=== PATIENT | female | born 1975 | race Caucasian/White ===

== ENCOUNTER 2016-12-09 20:58 | Observation (INO) | payer MEDICARE, OTHER ==
[2016-12-05 10:21] LABS: BASOPHILS 0.2 %; BASOPHILS ABSOLUTE 0.03 10/3/uL (0.0-0.16); EOSINOPHILS 0.6 %; EOSINOPHILS ABSOLUTE 0.09 10/3/uL (0.0-0.53); HEMATOCRIT 37.5 % (36.0-48.0); HEMOGLOBIN 12.4 g/dL (12.0-16.0); IMMATURE GRANULOCYTES 0.3 %; IMMATURE GRANULOCYTES ABSOLUTE 0.05 10/3/uL (0.0-0.11); LYMPHOCYTES 7.4 %; LYMPHOCYTES ABSOLUTE 1.15 10/3/uL (0.67-4.30); MEAN CORPUS HGB CONC 33.1 g/dL (32.0-36.0); MEAN CORPUSCULAR HEMOGLOB 29.6 pg (26.0-34.0); MEAN CORPUSCULAR VOLUME 89.5 fL (80-100); MEAN PLATELET VOLUME 9.7 fL (9.2-13.0); MONOCYTES 6.4 %; MONOCYTES ABSOLUTE 0.99 10/3/uL (0.21-1.20); NEUTROPHILS 85.1 %; PLATELET COUNT 261 10/3/uL (150-400); RBC DISTRIBUTION WIDTH 13.6 % (12.0-16.0); RED CELL COUNT 4.19 10/6/uL (4.0-5.6); WHITE BLOOD CELLS 15.5 10/3/uL (4.5-10.5)
[2016-12-05 10:22] LABS: MANUAL DIFF NO %
[2016-12-05 10:44] LABS: BUN (BLOOD UREA NITROGEN) 6 MG/DL (6-23); CA 125 II 307.8 U/ML (< 35.0); CALCIUM, SERUM 8.9 MG/DL (8.5-10.4); CHLORIDE, SERUM 103 MMOL/L (96-112); CO2 (CARBON DIOXIDE) 28 MMOL/L (24-34); CREATININE 0.84 MG/DL (0.55-1.02); GFR AFRICAN AMERICAN 99 ML/MIN (>=60); GFR NON AFRICAN AMERICAN 86 ML/MIN (>=60); GLUCOSE, SERUM 114 MG/DL (60-99); SODIUM, SERUM 139 MMOL/L (135-148)
[2016-12-05 10:45] LABS: CEA 0.7 NG/ML
--- NOTE | ~2016-12-09 | OP ---
Record Of Operation [facility] [address] [place]. [address] NAME: ONEIL SARAVIA : 73 STATUS : DIS Pina PAT#: [id number] AGE: 41 ADM/REG DATE : 12/09/16 MR#: [id number] REPORT SERV DATE: 12/14/16 DICTATED BY: ABDIAS HOWARD DATE: 12/13/16 REPORT STATUS : Draft TRANSCRIBED BY: AVELINO DATE: 12/13/16 DATE OF PROCEDURE: PREOPERATIVE DIAGNOSIS: Bilateral ovarian masses. POSTOPERATIVE DIAGNOSIS: A torsed necrotic right ovary with questionable left ovarian malignancy versus borderline ovarian tumor. PROCEDURES: 1. Laparoscopic hysterectomy with bilateral salpingo-oophorectomy for specimen greater than 250 g. CPT code 10006. 2. Lysis of adhesions. CPT code 99166. 3. Pelvic lymph node dissections. CPT code 30224. Omental biopsy. SURGEON: Abdias Howard M.D. ESTIMATED BLOOD LOSS: 100 mL. FLUIDS IN: 2 L of crystalloid. URINE OUTPUT: 800 mL. COMPLICATIONS: None. FINDINGS AND INDICATIONS: This is a 41-year-old female, who presented with bilateral ovarian masses and a CA-125 of greater than 300. She was taken to the operating room for laparoscopic hysterectomy, BSO, and possible ovarian cancer staging. She is noted to have a very large right ovary that was torsed and necrotic. She was also noted to have an enlarged left ovary. Both ovaries were drained with minimal spill and eventually taken through the vagina. The left ovary was opened and appeared to be consistent with the possibility of a borderline tumor, was sent for frozen section, which indicated the possibility of borderline tumor versus an invasive carcinoma. A staging procedure was performed secondary to the possibility of an invasive carcinoma. There was no gross evidence of tumor outside of the uterus. Omental biopsy and pelvic lymph node dissection were performed. At the completion of this procedure, the patient will be considered optimally cytoreduced with no gross residual disease. Postprocedure, a cystoscopy was performed with excellent bilateral ureteral jets and no evidence of bladder defect. Prior to induction of anesthesia, the patient was treated with Lovenox for DVT prophylaxis. PROCEDURE IN DETAIL: The patient was taken to the operating room. She was placed in supine position for administration of general anesthesia. She was then placed in dorsal lithotomy position and prepped and draped in usual sterile fashion. A LUIS A uterine manipulator was placed and a SAROJ ring was sutured to the patient's cervix. Our attention was then turned toward the anterior abdominal wall, where an incision was made approximately 27 cm above the pubic symphysis and taken down to the underlying layer of fascia. The fascia was incised, rectus muscles tented up and entered sharply. The peritoneal incision was extended so a Record Of Operation [facility] [address] [facility] [place]. [address] NAME: ONEIL SARAVIA : 73 STATUS : DIS Pina PAT#: [id number] AGE: 41 ADM/REG DATE : 12/09/16 MR#: [id number] REPORT SERV DATE: 12/14/16 DICTATED BY: ABDIAS HOWARD DATE: 12/13/16 REPORT STATUS : Draft TRANSCRIBED BY: AVELINO DATE: 12/13/16 laparoscopic trocar could be placed under direct visualization. Two additional 8-mm trocars were placed, one additional 12-mm trocar was placed all under direct visualization. The patient was then docked to the laparoscopic robotic instrument with remainder of the procedure performed via the da Faith. The above finding was noted. Pelvic washings were taken. Again, both ovaries were noted to be significantly enlarged. The retroperitoneal spaces were opened via round ligaments, which were grasped with bipolar cautery, cauterized, and transected bilaterally. The uterine arteries were identified at their origin and hemoclips were placed to ensure long-term hemostasis. The gonadal vessels were isolated bilaterally. Hemoclips were placed to ensure long-term hemostasis. They were then coagulated and transected bilaterally. The uterine arteries were then skeletonized at the level of the cervix, grasped with bipolar cautery, cauterized, and transected bilaterally. There were multiple adhesions around the ovaries, which were taken down with sharp dissection specifically around the necrotic ovary. The omentum was adherent and the ovary was adherent to the pelvic sidewall. This lysis of adhesions required greater than 50% of the entire operative time to remove. Once the adhesions were adequately displaced, both ovaries were placed into the pelvis. It did require drainage to be removed. There was minimal spill at the time of drainage. There was no gross tumor that spilled. Anteriorly, a bladder flap was created and taken down to a level well below the cervix. The uterosacral cardinal complexes were then taken down with unipolar cautery and a circumferential incision was made around the cervix and vagina, and the uterus, tubes, ovaries, and cervix were delivered through the vagina with the above findings noted. The vaginal cuff was then irrigated with copious amounts of warm water. The vaginal cuff was closed with a running stitch of #1 PDS V-Loc. A pelvic lymph node dissection was then performed within the boundaries of the circumflex iliac vein anteriorly, posteriorly with the obturator nerve, laterally with general femoral nerve, and medially with superior vesical artery. All structures were identified and spared bilaterally. All lymphatic tissue within these boundaries was removed and sent to pathology. The dissection was carried out superiorly to the level of the aorta. An omental biopsy was also performed. Again, there was no gross evidence of tumor on the omentum. Both hemidiaphragms were inspected laparoscopically with no gross evidence of tumor in the upper abdomen. At the completion of the procedure. The pelvis was irrigated with copious amounts of warm water. A DASIA drain was placed through one of the laparoscopic trocar sites. The remainder of the trocars were removed. The gas expelled from the abdomen. The initial incision was closed with 0 Vicryl at the fascia. The 12-mm port was also closed with 0 Vicryl at the fascia. The remainder of the skin sites were closed with 4-0 Vicryl at the skin and Dermabond was placed. Postprocedure, a cystoscopy was performed with excellent bilateral ureteral jets. No evidence of bladder defect. At the completion of the procedure, the anesthesia was reversed. The patient was extubated and brought to the recovery room in stable condition. ASCENCION/MODL Abdias Howard M.D. / [id number] Record Of Operation [address] [place]. [address] NAME: ONEIL SARAVIA VAISHALILb : 73 STATUS : DIS Pina PAT#: [id number] AGE: 41 ADM/REG DATE : 12/09/16 MR#: [id number] REPORT SERV DATE: 12/14/16 DICTATED BY: ABDIAS HOWARD DATE: 12/13/16 REPORT STATUS : Draft TRANSCRIBED BY: AVELINO DATE: 12/13/16 CC: Everett Perkins Jr. D.OManjit
[~2016-12-09 20:58] MED LIST: BL FLAX SEED1000 MG PO; CYMBALTA60 PO; DOLOPHINE10 MG PO; ENDOCET1 TA4 PO; FORTAMET500 MG PO; NORCO1 TAB PO; OXYCON20 PO; PR25 PO; PYR100B PO; [UNRECOGNIZED DRUG - OTHER] PO; [UNRECOGNIZED DRUG - OTHER] PO
[2016-12-10 05:18] LABS: BASOPHILS 0.1 %; BASOPHILS ABSOLUTE 0.01 10/3/uL (0.0-0.16); EOSINOPHILS 0 %; IMMATURE GRANULOCYTES 0.2 %; IMMATURE GRANULOCYTES ABSOLUTE 0.02 10/3/uL (0.0-0.11); LYMPHOCYTES 8.1 %; LYMPHOCYTES ABSOLUTE 0.75 10/3/uL (0.67-4.30); MEAN CORPUSCULAR HEMOGLOB 29.5 pg (26.0-34.0); MEAN CORPUSCULAR VOLUME 92.1 fL (80-100); MEAN PLATELET VOLUME 9.1 fL (9.2-13.0); MONOCYTES 5.7 %; MONOCYTES ABSOLUTE 0.53 10/3/uL (0.21-1.20); NEUTROPHILS 85.9 %; PLATELET COUNT 264 10/3/uL (150-400); RBC DISTRIBUTION WIDTH 13.6 % (12.0-16.0); WHITE BLOOD CELLS 9.3 10/3/uL (4.5-10.5)
[2016-12-10 05:21] LABS: HEMATOCRIT 27.8 % (36.0-48.0); HEMOGLOBIN 8.9 g/dL (12.0-16.0); MANUAL DIFF NO %; RED CELL COUNT 3.02 10/6/uL (4.0-5.6)
[2016-12-10 05:31] LABS: BUN (BLOOD UREA NITROGEN) 7 MG/DL (6-23); CALCIUM, SERUM 8.2 MG/DL (8.5-10.4); CHLORIDE, SERUM 99 MMOL/L (96-112); CO2 (CARBON DIOXIDE) 30 MMOL/L (24-34); CREATININE 0.75 MG/DL (0.55-1.02); GFR AFRICAN AMERICAN 114 ML/MIN (>=60); GFR NON AFRICAN AMERICAN 98 ML/MIN (>=60); POTASSIUM, SERUM 3.8 MMOL/L (3.5-5.3); SODIUM, SERUM 139 MMOL/L (135-148)
[2016-12-10 05:33] LABS: GLUCOSE, SERUM 153 MG/DL (60-99)
[2016-12-10] MEDS ORDERED: MIRALAX POWDER1 PKT PO (09:35)
[2016-12-10] MEDS ORDERED: OXYCOD PO (09:36)
[2016-12-10] MEDS ORDERED: ZOFRAN8 PO (09:36)
[2016-12-10 15:54] LABS: BASOPHILS 0.1 %; BASOPHILS ABSOLUTE 0.01 10/3/uL (0.0-0.16); EOSINOPHILS 0.5 %; EOSINOPHILS ABSOLUTE 0.05 10/3/uL (0.0-0.53); HEMATOCRIT 27.7 % (36.0-48.0); HEMOGLOBIN 8.8 g/dL (12.0-16.0); IMMATURE GRANULOCYTES 0.5 %; IMMATURE GRANULOCYTES ABSOLUTE 0.05 10/3/uL (0.0-0.11); LYMPHOCYTES 21.8 %; LYMPHOCYTES ABSOLUTE 1.99 10/3/uL (0.67-4.30); MANUAL DIFF NO %; MEAN CORPUS HGB CONC 31.8 g/dL (32.0-36.0); MEAN CORPUSCULAR HEMOGLOB 29.4 pg (26.0-34.0); MEAN CORPUSCULAR VOLUME 92.6 fL (80-100); MEAN PLATELET VOLUME 9.4 fL (9.2-13.0); MONOCYTES 5.6 %; MONOCYTES ABSOLUTE 0.51 10/3/uL (0.21-1.20); NEUTROPHILS 71.5 %; NEUTROPHILS ABSOLUTE 6.53 10/3/uL (2.02-8.40); PLATELET COUNT 288 10/3/uL (150-400); RBC DISTRIBUTION WIDTH 13.8 % (12.0-16.0); RED CELL COUNT 2.99 10/6/uL (4.0-5.6); WHITE BLOOD CELLS 9.1 10/3/uL (4.5-10.5)
[2016-12-11 06:24] LABS: BASOPHILS 0.3 %; BASOPHILS ABSOLUTE 0.02 10/3/uL (0.0-0.16); EOSINOPHILS 1.7 %; EOSINOPHILS ABSOLUTE 0.12 10/3/uL (0.0-0.53); HEMATOCRIT 29.7 % (36.0-48.0); HEMOGLOBIN 9.3 g/dL (12.0-16.0); IMMATURE GRANULOCYTES 1.6 %; IMMATURE GRANULOCYTES ABSOLUTE 0.11 10/3/uL (0.0-0.11); LYMPHOCYTES 31.2 %; LYMPHOCYTES ABSOLUTE 2.16 10/3/uL (0.67-4.30); MEAN CORPUS HGB CONC 31.3 g/dL (32.0-36.0); MEAN CORPUSCULAR HEMOGLOB 29.1 pg (26.0-34.0); MEAN CORPUSCULAR VOLUME 92.8 fL (80-100); MEAN PLATELET VOLUME 9.2 fL (9.2-13.0); MONOCYTES 6.2 %; MONOCYTES ABSOLUTE 0.43 10/3/uL (0.21-1.20); NEUTROPHILS ABSOLUTE 4.08 10/3/uL (2.02-8.40); PLATELET COUNT 292 10/3/uL (150-400); WHITE BLOOD CELLS 6.9 10/3/uL (4.5-10.5)
[2016-12-11 06:26] LABS: MANUAL DIFF NO %
[2017-05-19] MEDS ORDERED: ESTRACE0.5 MG PO (14:27)
[2017-05-19] MEDS ORDERED: PROMEGA PO (14:28)
[2017-05-19] MEDS ORDERED: FLOMAX4 PO (14:28)
[2017-05-19] MEDS ORDERED: K500 PO (14:28)
[2017-05-19] MEDS ORDERED: MAG6464 MG PO (14:29)
== END 2016-12-11 16:21 | disposition home or self-care (01) ==
LOC: SDC 20:58 → 4EA 20:59
PROVIDERS: Nurse Practitioner Family; Obstetrics & Gynecology Gynecologic Oncology
PROC: 0UT24ZZ Resection of Bilateral Ovaries, Percutaneous Endoscopic Approach (ICD-10-PCS; 2016-12-09)
PROC: 0UT74ZZ Resection of Bilateral Fallopian Tubes, Percutaneous Endoscopic Approach (ICD-10-PCS; 2016-12-09)
PROC: 0DNT4ZZ (ICD-10-PCS; 2016-12-09)
PROC: 0DNS4ZZ (ICD-10-PCS; 2016-12-09)
PROC: 07TC4ZZ Resection of Pelvis Lymphatic, Percutaneous Endoscopic Approach (ICD-10-PCS; 2016-12-09)
PROC: 0UT94ZZ Resection of Uterus, Percutaneous Endoscopic Approach (ICD-10-PCS; principal; 2016-12-09 14:30)
PROC: 0UTC4ZZ Resection of Cervix, Percutaneous Endoscopic Approach (ICD-10-PCS; 2016-12-09 14:30)
DX: C56.2 Malignant neoplasm of left ovary (principal); K65.4 Sclerosing mesenteritis; K59.00 Constipation, unspecified; G89.29 Other chronic pain; M54.2 Cervicalgia; M54.5 Low back pain; Z88.0 Allergy status to penicillin; Z88.5 Allergy status to narcotic agent; Z88.8 Allergy status to other drugs, medicaments and biological substances; Z91.040 Latex allergy status; Z79.84 Long term (current) use of oral hypoglycemic drugs; Z79.899 Other long term (current) drug therapy; Z98.890 Other specified postprocedural states; Z87.442 Personal history of urinary calculi
CPT/HCPCS: 36415; 71020; 80048; 82378; 84703; 85025; 86304; 86850; 86900; 86901; 88112; 88305; 88307; 88309; 88331; 93005; 96372; 96374; 96375; 96376; A9270-GY; G0378; J0694; J1170; J1885; J2250; J2405; J2710; J2795; J3010